=== PATIENT | male | born 1980 | race Caucasian/White ===

== ENCOUNTER 2024-10-09 09:49 | Emergency (ER) | payer SELFPAY ==
[~2024-10-09] VITALS: Ht 180.3 cm; Wt 103.4 kg
[2024-10-09 10:02] VITALS: TEMP 99
[2024-10-09] MEDS: ONDANSETRON HCL INJ 2MG/ML 2ML 2 MG/ML VIAL IV STA (10:15)
[2024-10-09] MEDS: Morphine 4mg INJECTION 4 MG/ML INJ IV ONE (10:15)
[2024-10-09] MEDS ORDERED: FENOFIBRATE145 M1 PO (10:24)
[2024-10-09] MEDS ORDERED: GLIPIZIDE ER10 MG PO (10:24)
[2024-10-09] MEDS ORDERED: PIOGLITAZONE HC45 MG PO (10:24)
[2024-10-09] MEDS ORDERED: SIMVASTATIN10 MG PO (10:24)
[2024-10-09 11:50] VITALS: PULSE 70; RESP 18; O2SAT 97
[2024-10-09] MEDS: HYDROCODONE/APAP 5MG-325MG TAB PO ONE (12:04)
[2024-10-09] MEDS: FENTANYL CITRATE/PF 100MCG/2 ML INJ IV ONE (12:09)
[2024-10-09] MEDS ORDERED: HYDROCODON-ACE1 EA11 PO (12:24)
== END 2024-10-09 13:24 | disposition home or self-care (01) ==
LOC: ER 09:52
DX: S52.592A Other fractures of lower end of left radius, initial encounter for closed fracture (principal); W01.0XXA Fall on same level from slipping, tripping and stumbling without subsequent striking against object, initial encounter; Y93.01 Activity, walking, marching and hiking; Y92.89 Other specified places as the place of occurrence of the external cause
CPT/HCPCS: 25605; 73110; 99284; J2270; J2405; J3010